=== PATIENT | female | born 2000 | race African-American/Black ===

== ENCOUNTER 2022-05-21 12:34 | Emergency (ER) | payer MEDICAID ==
[~2022-05-21] VITALS: Ht 167.6 cm; Wt 145.0 kg
[2022-05-21 12:46] VITALS: BP 134/84
[2022-05-21 14:44] LABS: BASOPHILS % 0.2 % (0.0-2.0); EOSINOPHILS % 1.4 % (0.0-5.0); HEMOGLOBIN. 9.8 g/dL (12.0-16.0); MEAN CORPUSCULAR HEMOGLOBIN 30.5 pg (28.0-32.0); MEAN CORPUSCULAR VOLUME 90.3 fL (81.0-99.0); MEAN PLATELET VOLUME 8.3 fl (7.4-10.4); MONOCYTES % 6.5 % (2.0-8.0); NEUTROPHILS % 63.9 % (40.0-76.0); PLATELET 226 x1000/uL (130-400); RED BLOOD CELL COUNT 3.21 mill/uL (4.2-5.4); RED CELL DISTRIBUTION WIDTH 15.1 % (11.6-14.6)
[2022-05-21 14:51] LABS: CHLORIDE 109 mEq/L (98-107)
[2022-05-21 14:54] LABS: INR 0.9; PROTHROMBIN TIME 10.2 sec (9.6-11.0)
[2022-05-21 15:05] LABS: CLARITY URINE CLEAR (CLEAR); COLOR URINE YELLOW (YELLOW); KETONES URINE TRACE (NEGATIVE); LEUKOCYTE ESTERASE URINE 1+ (NEGATIVE); NITRITE URINE POSITIVE (NEGATIVE); OCCULT BLOOD URINE NEGATIVE (NEGATIVE); PROTEIN URINE TRACE (NEGATIVE); SPECIFIC GRAVITY URINE 1.027 (1.005-1.030)
[2022-05-21 15:16] LABS: B-HCG QUANTITATIVE 11014 mIU/mL (<3)
[2022-05-21] MEDS ORDERED: CEPH250C2 MT (15:35)
[2022-05-21] MEDS ORDERED: [UNRECOGNIZED DRUG - CODE] MC (15:35)
== END 2022-05-21 16:12 | disposition home or self-care (01) ==
LOC: ER 12:34
DX: O23.13 Infections of bladder in pregnancy, third trimester (principal); O26.893 Other specified pregnancy related conditions, third trimester; Z3A.30 30 weeks gestation of pregnancy
CPT/HCPCS: 36415; 80053; 81003; 83880; 84702; 85025; 93970; 99284